=== PATIENT | male | born 1995 | race Two or more races ===

== ENCOUNTER 2020-11-04 14:45 | Inpatient (IN) | payer OTHER, SELFPAY ==
[~2020-11-04] VITALS: Ht 167.6 cm; Wt 70.6 kg
--- NOTE | 2020-11-04 15:20 | NUR ---
at bedside for exam. States he is calling maxilofacial surgeon for consult. Pt already swabbed for Covid by and sent.
--- NOTE | 2020-11-04 15:55 | NUR ---
End of shift report given to RN and care transferred. RN aware that no cargo and container inspector has been completed as yet.
--- NOTE | 2020-11-04 16:00 | NUR ---
RECEIVED REPORT FROM KERRIE ALBERTS. PT RESTING ON GURSELENA. VSS. DR. PARSON AT BEDSIDE FOR EVAL.
[2020-11-04] MEDS ORDERED: MORPHINE SULFATE 4 MG/ML, 1ML IVPush PRN ×2 (16:30→23:45)
[2020-11-04] MEDS ORDERED: D5%-0.45% NACL 1,000 ML IV ONE (16:30)
[2020-11-04] MEDS ORDERED: SODIUM CHLORIDE FLUSH 10ML SYR IVF PRN (16:30)
[2020-11-04] MEDS ORDERED: ONDANSETRON 2MG/ML, 2ML IVPush PRN ×2 (16:30→18:30)
[2020-11-04] MEDS ORDERED: LIDOCAINE 1%, 20ML ONE (16:41)
[2020-11-04] MEDS ORDERED: EPINEPHRINE 1 MG/ML, 1ML ONE (16:41)
[2020-11-04] MEDS ORDERED: NEOSPORIN OINT, 15GM ONE (16:41)
--- NOTE | 2020-11-04 17:01 | NUR ---
PT RESTING ON GURNEY. NADN. YOON.
--- NOTE | 2020-11-04 17:06 | NUR ---
REPORT GIVEN TO OR. ALL QUESTIONS ANSWERED.
[2020-11-04] MEDS ORDERED: FENTANYL PF 250 MCG/5ML ONE (17:34)
[2020-11-04] MEDS ORDERED: MIDAZOLAM 1 MG/ML, 2ML ONE (17:34)
[2020-11-04] MEDS ORDERED: PROPOFOL 10 MG/ML, 20ML ONE (17:34)
[2020-11-04] MEDS ORDERED: GLYCOPYRROLATE 0.2MG/1ML, 5ML ONE (17:34)
[2020-11-04] MEDS ORDERED: ROCURONIUM 10MG/ML,5ML ONE (17:34)
[2020-11-04] MEDS ORDERED: DEXAMETHASONE 4 MG/ML, 1ML ONE (17:34)
[2020-11-04] MEDS ORDERED: ONDANSETRON 2MG/ML, 2ML ONE (17:51)
[2020-11-04] MEDS ORDERED: SUCCINYLCHOLINE 20 MG/ML, 10ML ONE (17:51)
[2020-11-04] MEDS ORDERED: LIDOCAINE 1%-EPI 1:100K, 20ML INFIL ONE (18:13)
[2020-11-04] MEDS ORDERED: HYDROmorphone 1 MG/ML, 1ML INJ IVPush PRN (18:30)
[2020-11-04] MEDS ORDERED: LABETALOL 5MG/ML, 20ML IV PRN (18:30)
[2020-11-04] MEDS ORDERED: MEPERIDINE/PF 25MG/0.5ML IVPush PRN (18:30)
[2020-11-04] MEDS ORDERED: MIDAZOLAM 1 MG/ML, 2ML IV PRN (18:30)
[2020-11-04] MEDS ORDERED: PROMETHAZINE 12.5 MG SUPP PR PRN (18:30)
[2020-11-04] MEDS ORDERED: hydrALAzine 20 MG/ML, 1ML IV PRN (18:30)
[2020-11-04] MEDS ORDERED: PROMETHAZINE 25 MG/ML, 1ML IVPush PRN (18:30)
[2020-11-04] MEDS ORDERED: OXYcodone 5 MG/5 ML ORAL.SOL UDC PO PRN (18:30)
[2020-11-04] MEDS ORDERED: AMPICILLIN/SULBACTAM 3 GM in SODIUM CHLORIDE 0.9% 100 ML IV ONE (18:30)
[2020-11-04] MEDS ORDERED: DIAZEPAM 5 MG/ML, 2ML IVPush PRN (18:30)
[2020-11-04] MEDS ORDERED: LORazepam 2 MG/ML, 1ML IVPush PRN (18:30)
[2020-11-04] MEDS ORDERED: EPHEDRINE 50 MG/ML, 1ML IVPush PRN (18:30)
[2020-11-04] MEDS ORDERED: FENTANYL PF 100 MCG/2ML IV PRN (18:30)
[2020-11-04] MEDS ORDERED: ALBUTEROL SULFATE 2.5 MG/3 ML NPPB PRN (18:30)
[2020-11-04] MEDS ORDERED: DIPHENHYDRAMINE 50 MG/ML, 1ML IVPush PRN ×2 (18:30)
[2020-11-04] MEDS ORDERED: FENTANYL PF 100 MCG/2ML ONE ×2 (19:15→20:17)
[2020-11-04 22:51] VITALS: BP 130/88
[2020-11-05] VITALS: BP 144/87
[2020-11-05] MEDS: MORPHINE SULFATE 4 MG/ML, 1ML IV PRN ×3 (00:06→09:55)
[2020-11-05] MEDS: ACETAMINOPHEN 500 MG TABLET PO PRN ×3 (00:07→09:55)
[2020-11-05] MEDS: AMPICILLIN/SULBACTAM 3 GM in SODIUM CHLORIDE 0.9% 100 ML IV SCH ×3 (01:09→13:39)
[2020-11-05 05:20] VITALS: BP 132/83
[2020-11-05 07:11] VITALS: BP 135/79
[2020-11-05 13:58] VITALS: BP 118/76
[2020-11-05] MEDS ORDERED: CHLO15MO PO (14:22)
[2020-11-05] MEDS ORDERED: AMOX1TAB64 PO (14:23)
[2020-11-05] MEDS ORDERED: NAPR-856 PO (14:23)
== END 2020-11-05 14:37 | disposition home or self-care (01) | DRG 142 ==
LOC: ED 16:25 → EDIP 16:42 → 4NE 22:45
PROVIDERS: ADMIT Otolaryngology Facial Plastic Surgery; ATTEND Otolaryngology Facial Plastic Surgery
PROC: 0NSV0ZZ Reposition Left Mandible, Open Approach (ICD-10-PCS; 2020-11-04)
PROC: 0NST04Z Reposition Right Mandible with Internal Fixation Device, Open Approach (ICD-10-PCS; principal; 2020-11-04 18:00)
DX: S02.66XA Fracture of symphysis of mandible, initial encounter for closed fracture (principal); S02.612A Fracture of condylar process of left mandible, initial encounter for closed fracture; Z20.822 Contact with and (suspected) exposure to COVID-19; X58.XXXA Exposure to other specified factors, initial encounter; Y93.89 Activity, other specified; Y92.89 Other specified places as the place of occurrence of the external cause; Y99.8 Other external cause status; Z79.899 Other long term (current) drug therapy
CPT/HCPCS: 96374; 99285; J3490; 70486; 87635; C1713; G0378; J0171; J0295; J1100; J2250; J2405; J2704; J3010; J0330; J2270